=== PATIENT | female | born 1990 | race Asian ===

== ENCOUNTER → 2025-09-21 17:19 | Outpatient (REF) | payer OTHER, SELFPAY | LOC: RAD 17:19 | PROVIDERS: ATTENDING PHYSICIAN Chiropractor | DX: M99.01 Segmental and somatic dysfunction of cervical region (principal); M62.40 Contracture of muscle, unspecified site; M99.02 Segmental and somatic dysfunction of thoracic region; M99.03 Segmental and somatic dysfunction of lumbar region | CPT/HCPCS: 72050; 72072; 72110 ==

== ENCOUNTER → 2025-09-27 13:41 | Outpatient (REF) | payer OTHER, SELFPAY ==
[2025-09-27 17:31] LABS: Urine Character Clear (Clear)
[2025-09-27 20:25] LABS: Urine Red Blood Cell 0-2 /HPF (0-2); Urine Squamous Cell 21-25 /LPF (Few); Urine White Cell 16-20 /HPF (0-5)
== END ==
LOC: CLAB 13:41
PROVIDERS: ATTENDING PHYSICIAN Student in an Organized Health Care Education/Training Program
DX: N30.01 Acute cystitis with hematuria (principal)
CPT/HCPCS: 81003; 81015; 87077; 87086; 87147

== ENCOUNTER → 2025-10-02 08:09 | Outpatient (REF) | payer OTHER, SELFPAY | LOC: HWRAD 08:09 | PROVIDERS: ATTENDING PHYSICIAN Student in an Organized Health Care Education/Training Program | DX: R80.8 Other proteinuria (principal); R31.0 Gross hematuria | CPT/HCPCS: 76770 ==